=== PATIENT | male | born 1965 | race Caucasian/White ===

== ENCOUNTER 2023-10-16 15:09 | Emergency (ER) | payer OTHER, SELFPAY ==
[2023-10-16 15:14] VITALS: BP 130/92; PULSE 90; TEMP 36.8; O2SAT 97; BMI 33.0
--- NOTE | 2023-10-16 15:22 | XR_ITS ---
The [address] [address] Patient Name: CORWIN BERGER MRN: [id number] date: 1965 Sex: M Assigned Patient Location: ER Current Patient Location: ED.MAIN Accession/Order Number: [id number] Exam Date: 10/16/2023 16:00 Report Date: 10/16/2023 17:21 At the request of: CLARA RAMÍREZ Procedure: XR hand RT min 3V XR hand RT min 3V CLINICAL: Nail in hand COMPARISON: No prior studies are available. TECHNIQUE: Three radiographic views right hand. FINDINGS: A metallic nail projects over the soft tissues of the pulmonary arteries fifth digit region. The AP and oblique views show the nail projecting over the proximal fifth phalanx, without definite penetration of the fifth metacarpal head. The lateral view projects the nail anterior to the base of the fifth phalanx, suggesting that the nail is not penetrating bone, however it is difficult to exclude bone involvement with certainty. No additional metallic or radiopaque foreign body projects over the hand, and no fracture or dislocation is seen. XR/XR hand RT min 3V IMPRESSION: Consistent with patient's history of penetrating injury, a nail projects over the ulnar aspect of the hand overlying the region of the fifth MCP joint. No definite evidence of bone penetration is seen, however is difficult to entirely exclude bone involvement radiographically. No fracture or dislocation is seen. Electronically authenticated by: LAURIE RAMAN Date: 10/16/2023 17:21
[2023-10-16] MEDS: ADACEL DIPH,PERTUSS(ACELL),TET VAC/PF 0.5 ML ADULT SYRINGE IM (15:28)
[2023-10-16] MEDS: LIDOCAINE HCL 1% 100 MG/10 ML MDV INJ (15:29)
[2023-10-16] MEDS: BACITRACIN OINTMENT 28.4 GM TUBE 1 APPLIC TOPICAL (16:56)
--- NOTE | 2023-10-16 17:14 | ED_ITS ---
HPI - Wound/Laceration General Chief Complaint: Wound/Laceration Stated Complaint: Laceration/Puncture Wound Time Seen by Provider: 10/16/23 15:12 Source: patient Mode of arrival: walk-in Limitations: no limitations History of Present Illness HPI narrative: The patient was doing some work at home when his nail gun slipped and the nail went into his right hand, the patient Tetanus booster was more than 10 years ol d. He denies any other injuries Related Data Previous Rx's ?Medication ?Instructions ?Recorded amoxicillin 875 mg-potassium 1 tab PO BID #20 tabs 10/16/23 clavulanate 125 mg tablet Allergies Allergy/AdvReac Type Severity Reaction Status Date / Time No Known Drug Allergies Allergy Verified 10/16/23 15:16 Review of Systems ROS Status of ROS 10 or more systems reviewed and unremark able except as noted in history and below Exam Narrative Exam Narrative: Nurses notes and vital signs reviewed and patient is not hypoxic. Right hand examination showed that the patient have a puncture wound with a nail in its that is superficial and movable not attached to the bone it is just below the fifth metacarpal phalangeal joint proximally, the patient puncture wound is not through the skin of the hand only superficial and it is almost 1 cm into the hand but not reaching the bone, General: Well-appearing and in no apparent distress. Skin: Warm, dry, no pallor noted. No rash. Head: Normocephalic, atraumatic. Neck: Supple, non-tender. Eye: Pupils are equal, round and EOMI. No scleral icterus. Ears, Nose, Mouth, and Throat: TM are clear, no nasal mucosal hypertrophy. Oral mucosa is moist, no posterior oropharynx erythema, uvula is mid-line Cardiovascular: Regular Rate and Rhythm without murmur, gallop or rub. Respiratory: No accessory muscle use or respiratory distress. Lungs are clear to auscultation, no wheezing, rales or rhonchi Chest Wall: no tenderness Back: No midline thoracic or lumbar vertebral tenderness. No CVA tenderness Musculoskeletal: normal ROM, no calf or popliteal tenderness, no lower extremity edema/swelling GI: Abdomen is soft, non-distended. Normal bowel sounds. No masses appreciated. No tenderness to palpation. No rebound, guarding, or rigidity noted. Neurological: A&O x4. No cranial nerve dysfunction observed. No truncal ataxia. Moves all extremities. Sensation intact. Psychiatric: Cooperative and interactive. Normal mood and affect. Constitutional Vital Signs, click to edit/add: Last Vital Signs Temp 98.2 F 10/16/23 15:14 Pulse 83 10/16/23 17:37 Resp 18 10/16/23 17:37 BP 131/78 10/16/23 17:37 Pulse Ox 97 10/16/23 17:37 O2 Del Method Room Air 10/16/23 17:37 Course Vital Signs Vital signs: Vital Signs Temperature 98.2 F 10/16/23 15:14 Pulse Rate 90 10/16/23 15:14 Respiratory Rate 18 10/16/23 15:14 Blood Pressure 130/92 H 10/16/23 15:14 Pulse Oximetry 97 10/16/23 15:14 Oxygen Delivery Method Room Air 10/16/23 15:14 Temperature 98.2 F 10/16/23 15:14 Pulse Rate 83 10/16/23 17:37 Respiratory Rate 18 10/16/23 17:37 Blood Pressure 131/78 10/16/23 17:37 Pulse Oximetry 97 10/16/23 17:37 Oxygen Delivery Method Room Air 10/16/23 17:37 MDM - Wound/Laceration MDM Narrative Medical decision making narrative: After cleaning the hand thoroughly with Betadine as well as normal saline, the patient had the area infiltrated with 1% lidocaine after which a small 0.5 cm laceration just beside the puncture wound was made by 11 size blade . The nail was then pulled out The patient tolerated the procedure well after that the patient had 3 stitches applied 4-0 nylon and clean dressing and Satinder wrap applied The patient to keep the wound clean and dry for the next 5 to 7 days he was instructed about monitoring the symptoms case of any fever or increasing drainage the patient to be coming back to the ER Patient was provided with his tetanus booster He also was provided with Augmentin for prophylactic treatment Initially an x-ray was done to the right hand that confirmed that the superficial placement of the nail The patient is to follow up with primary care physician in next 2-3 days or to return to the emergency department should any of the signs or symptoms worsen or new symptoms develop. The patient agrees with the following Diagnosis and Treatment plan and the patient will be discharged home. Discharge Plan Discharge Stand Alone Forms: Portal Instructions Chief Complaint: Wound/Laceration Clinical Impression: Laceration Puncture wound of hand Qualifiers: Encounter type: initial encounter Foreign body presence: with foreign body Laterality: right Qualified Code(s): S61.441A - Puncture wound with foreign body of right hand, initial encounter Patient Disposition: Home, Self-Care Time of Disposition Decision: 17:14 Condition: Good Prescriptions / Home Meds: New amoxicillin-pot clavulanate 875-125 mg tablet 1 tab PO BID Qty: 20 0RF Print Language: Maori Instructions: Puncture Wound (DC) Referrals: Joss Forbes MD [Primary Care Provider] - 1 week Discharge Date/Time: 10/16/23 17:40
[2023-10-16 17:37] VITALS: BP 131/78; PULSE 83; O2SAT 97
== END 2023-10-16 17:40 | disposition home or self-care (01) ==
PROVIDERS: Emergency Provider Emergency Medicine; PCP Family Medicine
DX: S61.441A Puncture wound with foreign body of right hand, initial encounter (principal); W29.4XXA Contact with nail gun, initial encounter; Z23 Encounter for immunization
CPT/HCPCS: 10120; 73130; 90471; 90715; 99283